=== PATIENT | male | born 1980 ===

== ENCOUNTER 2017-04-17 09:43 | Day surgery (SDC) | payer OTHER ==
[2017-04-15 14:38] VITALS: BMI 34.3
[2017-04-17] MEDS ORDERED: Lidocaine 2% Inj (20ml) ONE (11:23)
[2017-04-17] MEDS ORDERED: Iodixanol 320 MG/ML 200 ML BOTTLE IV ONE (11:24)
[2017-04-17] MEDS ORDERED: Eptifibatide 20 mg/10mL Inj IVP ONE (11:24)
[2017-04-17] MEDS ORDERED: Iohexol 350mgl/ml 50 ML ONE (11:24)
[2017-04-17] MEDS ORDERED: Nitroglycerin 50mg in D5W 50 MG/250 ML BOTTLE IV ONE (11:24)
[2017-04-17] MEDS ORDERED: Iodixanol 320 MG/ML 100 ML BOTTLE IV ONE (11:25)
[2017-04-17] MEDS ORDERED: Phenylephrine 10 mg/ml Inj ONE (11:25)
[2017-04-17] MEDS ORDERED: Midazolam 2 MG/2 ML VIAL ONE (11:40)
[2017-04-17] MEDS ORDERED: Sodium Chloride 0.9% 1,000 ML IV SCH (12:45)
[2017-04-17] MEDS ORDERED: Piperacillin/Tazobact 3.375 gm 100 ML IVPB SCH (13:00)
--- NOTE | 2017-04-17 14:38 | CP.CCUPN ---
<PAYAM MOULTON - Last Filed: 04/17/17 14:30> CCU Subjective - Physician Review Subjective (Free Text): 04/17/17 14:30 Patient seen and assessed at bedside. Patient was received from [facility] for a PCI procedure on his LAD, which was performed by Dr. Lorenzo, and will be transferring back to [facility] at 1730 on 04/17. Patient has no complaints at this time. Patient denies fever, chills, headache, dizziness, chest pain, palpitations, shortness of breath, cough, abdominal pain, N/V, diarrhea, low back pain, or any numbness/tingling/weakness of any extremity. CCU Objective - Vital Signs / Intake & Output Intake and Output (Last 8hrs): Intake & Output 04/16/17 04/17/17 04/17/17 22:59 06:59 14:59 Weight 197 lb - Physical Exam Head: Positive for: Atraumatic, Normocephalic Pupils: Positive for: PERRL Extroacular Muscles: Positive for: EOMI Conjunctiva: Positive for: Normal Mouth: Positive for: Moist Mucous Membranes Pharnyx: Positive for: Normal. Negative for: ERYTHEMA, EXUDATE Nose (External): Positive for: Atraumatic Neck: Positive for: Normal Range of Motion, Trachea Midline. Negative for: JVD Respiratory/Chest: Positive for: Clear to Auscultation, Good Air Exchange. Negative for: Respiratory Distress, Accessory Muscle Use, Rhonchi, Tachypneic Cardiovascular: Positive for: Regular Rate and Rhythm, Normal S1, S2, Peripheal Pulses Present. Negative for: Murmurs, Tachycardic Abdomen: Positive for: Normal Bowel Sounds. Negative for: Tenderness, Distention, Peritoneal Signs Upper Extremity: Positive for: Normal Inspection, NORMAL PULSES, Capillary Refill < 2s, Other (L antecubital procedure insertion site without erythema, edema or drainage). Negative for: Cyanosis, Edema Lower Extremity: Positive for: Normal Inspection, NORMAL PULSES, Capillary Refill < 2 s. Negative for: Edema, CALF TENDERNESS Neurological: Positive for: GCS=15, CN II-XII Intact, Speech Normal, Motor Func Grossly Intact, Normal Sensory Function Skin: Positive for: Warm, Dry, Normal Color. Negative for: Rashes Psychiatric: Positive for: Alert, Oriented x 3, Normal Insight, Normal Concentration - Medications Active Medications: Active Medications Generic Name Dose Route Start Last Admin Trade Name Puja PRN Reason Stop Dose Admin Aspirin 81 mg 04/18/17 10:00 Ecotrin PO DAILY [facility] Atorvastatin Calcium 40 mg 04/17/17 17:00 Lipitor PO DIN [facility] Carvedilol 3.125 mg 04/17/17 18:00 Coreg PO BID [facility] Clopidogrel Bisulfate 75 mg 04/18/17 10:00 Plavix PO DAILY [facility] Famotidine 40 mg 04/17/17 22:00 Pepcid PO HS JAZMYNE Sodium Chloride 1,000 mls @ 100 mls/hr 04/17/17 12:45 Sodium Chloride 0.9% IV 04/17/17 18:00 .Q10H JAZMYNE Piperacillin Sod/Tazobactam Sod 100 mls @ 200 mls/hr 04/17/17 13:00 Zosyn 3.375 In Ns 100ml IVPB 04/17/17 21:29 Q8H JAZMYNE Protocol Insulin Human Regular 0 units 04/17/17 16:30 Humulin R Low SC ACHS [facility] Protocol Losartan Potassium 25 mg 04/18/17 10:00 Cozaar PO DAILY JAZMYNE - Patient Studies EKG/Cardiology Studies: Cardiology / EKG Studies 04/17/17 12:42 ELECTROCARDIOGRAM Urgent Comment: 12 lead EKG upon arrival in unit Reason For Exam: post ptca 04/18/17 12:45 ELECTROCARDIOGRAM DAILY Comment: Reason For Exam: chest pain Review of Systems - Review of Systems Review of Systems: Please refer to HPI Critical Care Progress Note - Nutrition Nutrition: Nutrition Category Date Time Status Heart Healthy Diet [DIET] Diets 04/17/17 Lunch Ordered Assessment/Plan - Assessment and Plan (Free Text) Assessment: 37 year old male who was received from [facility] for PCI on his LAD and will be monitored in [facility] ICU until his transfer back to [facility] at 1730 on 04/17 Plan: Cardio: -Will continue to monitor vital signs and clinical status -Continue current medication regiment as needed -Heart healthy moderate carbohydrate consistent diet Disposition: Patient will transfer back to [facility] at 1730 on 04/17 Patient seen and case discussed with attending, Dr. White. - Date & Time Date: 04/17/17 Time: 14:42 <Rohith White - Last Filed: 04/17/17 15:12> CCU Objective - Vital Signs / Intake & Output Vital Signs (Last 4 hours): Vital Signs Pulse Resp BP Pulse Ox 04/17/17 15:03 166/110 H 04/17/17 15:02 166/110 H 04/17/17 14:27 75 18 150/97 H 98 04/17/17 14:12 75 18 150/97 H 98 04/17/17 13:57 153/84 H 04/17/17 13:42 80 18 153/84 H 98 04/17/17 13:27 78 18 154/104 H 98 04/17/17 13:12 78 18 150/70 98 04/17/17 12:57 169/94 H 04/17/17 12:51 78 18 165/89 H 99 Intake and Output (Last 8hrs): Intake & Output 04/17/17 04/17/17 04/17/17 06:59 14:59 22:59 Weight 197 lb - Medications Active Medications: Active Medications Generic Name Dose Route Start Last Admin Trade Name Freq PRN Reason Stop Dose Admin Aspirin 81 mg 04/18/17 10:00 Ecotrin PO DAILY [facility] Atorvastatin Calcium 40 mg 04/17/17 17:00 Lipitor PO DIN [facility] Carvedilol 3.125 mg 04/17/17 18:00 Coreg PO BID JAZMYNE Clopidogrel Bisulfate 75 mg 04/18/17 10:00 Plavix PO DAILY [facility] Famotidine 40 mg 04/17/17 22:00 Pepcid PO HS JAZMYNE Sodium Chloride 1,000 mls @ 100 mls/hr 04/17/17 12:45 Sodium Chloride 0.9% IV 04/17/17 18:00 .Q10H JAZMYNE Piperacillin Sod/Tazobactam Sod 100 mls @ 200 mls/hr 04/17/17 13:00 04/17/17 14:54 Zosyn 3.375 In Ns 100ml IVPB 04/17/17 21:29 200 mls/hr Q8H JAZMYNE Administration Protocol Insulin Human Regular 0 units 04/17/17 16:30 Humulin R Low SC ACHS JAZMYNE Protocol Losartan Potassium 25 mg 04/18/17 10:00 Cozaar PO DAILY JAZMYNE - Patient Studies EKG/Cardiology Studies: Cardiology / EKG Studies 04/17/17 12:42 ELECTROCARDIOGRAM Urgent Comment: 12 lead EKG upon arrival in unit Reason For Exam: post ptca 04/18/17 12:45 ELECTROCARDIOGRAM DAILY Comment: Reason For Exam: chest pain Critical Care Progress Note - Nutrition Nutrition: Nutrition Category Date Time Status Heart Healthy Diet [DIET] Diets 04/17/17 Lunch Ordered Attending/Attestation - Attestation I have personally seen and examined this patient.: Yes I have fully participated in the care of the patient.: Yes I have reviewed all pertinent clinical information: Yes Notes (Text): 04/17/17 15:10 37 yo male s/p PCI, awaiting transfer back to [facility]. Hemodynamically and respiratory colon stable. No chest pain. Cardiology service to follow up.
--- NOTE | 2017-04-17 14:41 | CARD ---
APPROVED REPORT Procedure(s) performed: PTCA with Stenting of Mid LAD with REGGIE HISTORY The patient is a 37 year-old male with a history of : most recent EF: 40%. (EF Method: LVG), diabetes mellitus with diet treatment , previous diagnostic cath, tobacco history() : The patient is a current smoker , hypertension , Admitted in [facility] with ACS/ NSTEMI positive troponin 4.9 umnderwent Cath at [facility] by Dr. Adele Parnell and tx to broken arrow for PTCA of Mid LAD. INDICATION The indication(s) include : non-STEMI . CASE TECHNIQUE The patient was brought urgently to the Cardiac Catheterization Laboratory in a fasting state and was prepped and draped in a sterile manner. The left wrist was infiltrated with 2% Lidocaine subcutaneous anesthesia. A 6 Fr x 11 cm Yudy sheath was inserted into the left radial artery without difficulty. Coronary angiography was performed using coronary diagnostic catheters. The left coronary system was accessed and visualized with a 6 Fr XB 3 catheter. Closure device was deployed with a Fr TR Band (Large) without any complications. The patient tolerated the procedure well and there were no complications associated with the procedure. Vessel Analysis The patient's coronary anatomy is right dominant. The left main coronary artery is a large size vessel with diffuse calcification noted throughout this vessel and without significant stenosis. The left main bifurcates to the left anterior descending and circumflex. The left anterior descending artery is a medium size vessel with diffuse calcification noted throughout this vessel and with significant stenosis. There is a 99% stenosis in the mid segment. PCI Technique Lesion Percutaneous coronary intervention was performed on the mid left anterior descending artery segment. The lesion stenosis prior to intervention was 95% with DARRELL 2 flow. A 6 Fr XB 3 Guide Catheter was used to engage the ostium. BALLOON DILATION A Balloon catheter 2.0 x 8 mm Mini Trek RX was inserted and inflated up to 8.00atm for 16seconds. STENT DEPLOYMENT A drug-eluting stent 2.75 x 14 mm Resolute REGGIE was inserted and inflated up to 12.00atm for 20seconds. POST STENT DEPLOYMENT BALLOON DILATION A Balloon catheter 3.0 x 8 mm Trek RX NC was inserted and inflated up to 14.00atm for 15seconds. Final angiography reveals 0 % stenosis with DARRELL 3 flow. Conclusion One vessel Critical Mid LAD 99% stenosis. Successful PTCA with REGGIE Recommendations Smoking Cessation Cardiac Rehabilitation ReferralDaily ASA with Plavix for at least one year Aggressive Medical TherapyCardiac Risk Reduction Program Weight Loss Reduction Program CC;Dr. Adele Parnell
[2017-04-17 15:19] LABS: BASO # 0.03 K/mm3 (0.0-2.0); BASO % 0.3 % (0.0-3.0); EOS # 0.1 (0.0-0.7); EOS % 0.7 % (1.5-5.0); GRAN # 4.29 (1.4-6.5); HEMATOCRIT 39.8 % (42.0-52.0); LYMPH # 4.2 (1.2-3.4); LYMPH % 44.2 % (22.0-35.0); MEAN CELL VOLUME 87.9 fl (80.0-105.0); MEAN CORPUSCULAR HEMOGLOBIN 30.5 pg (25.0-35.0); MEAN CORPUSCULAR HGB CONC 34.7 g/dl (31.0-37.0); MEAN PLATELET VOLUME 10.7 fl (7.0-11.0); MONO # 0.9 (0.1-0.6); MONO % 9.8 % (1.0-6.0); RED CELL DISTRIBUTION WIDTH 11.6 % (11.5-14.5); WHITE BLOOD COUNT 9.6 10^3/ul (4.5-11.0)
[2017-04-17 15:29] LABS: BLOOD UREA NITROGEN 11 mg/dL (7-21); CALCIUM 8.3 mg/dL (8.4-10.5); CARBON DIOXIDE 25 mmol/L (21-33); CHLORIDE 102 mmol/L (98-107); GFR AFRICAN-AMERICAN > 60; GLUCOSE,RANDOM 194 mg/dL (70-110); POTASSIUM 3.5 mmol/L (3.6-5.0); SODIUM 136 mmol/L (132-148)
[2017-04-17] MEDS ORDERED: Insulin Reg-LOW-Coverage SC SCH (16:30)
[2017-04-17] MEDS ORDERED: Bacitracin 500 Units/gm Oint Foilpak UD ONE (17:11)
--- NOTE | 2017-04-17 17:49 | CARD ---
APPROVED REPORT EKG Measurement Heart [id number] <Conclusion> Normal sinus rhythm T wave abnormality, consider anterolateral ischemia Prolonged QT Abnormal ECG
[2017-04-17 19:45] VITALS: BP 161/95
--- NOTE | 2017-04-17 20:27 | HP ---
REASON FOR ADMISSION: Possible angioplasty of mid LAD, transferred from [facility]. BRIEF CLINICAL HISTORY: A 37-year-old male active tobacco abuse, admitted with unstable angina at [facility], subsequently ruled in on Non-STEMI, underwent cardiac catheterization yesterday by Dr. Wayne Parnell, found to be mid LAD critical disease, so patient was transferred today for angioplasty. PAST HISTORY: Significant for diabetes, hypertension, currently not on meds. CURRENT MEDICATIONS: None. ALLERGIES: NONE. SOCIAL HISTORY: Smokes a pack a day, cut down to half a pack recently and now from last one week, cut down further before prior to admission. FAMILY HISTORY: Significant for hypertension, diabetes. No family history of coronary artery disease. REVIEW OF SYSTEMS: As per HPI. PHYSICAL EXAMINATION: VITAL SIGNS: Temperature afebrile, heart rate 88, blood pressure 143/109. HEENT: PERRLA, extraocular muscles intact. NECK: Supple. No carotid bruit. No thyromegaly. HEART: S1 and S2 regular. LUNGS: Clear to auscultation. ABDOMEN: Soft. EXTREMITIES: Clubbing and cyanosis negative. LABORATORY DATA: WBC 13.2, hemoglobin 15.3, hematocrit 45.8, platelet count 168. Chemistry shows sodium yesterday was 139, potassium 3.8, chloride 98, carbon dioxide 22, anion gap of 22, BUN 23, creatinine 12. BNP: 10,000 units of troponin. Total troponin 4.9. Triglycerides 151, cholesterol 258, LDL 207, HDL 47. TSH 0.32. IMPRESSION: Non-ST segment myocardial infarction, coronary artery disease, active tobacco abuse, diabetes, hyperlipidemia, status post cardiac catheterization by Dr. Wayne Parnell. Found to be critical disease in mid left anterior descending artery, patient here for percutaneous transluminal coronary angioplasty of left anterior descending artery. Risks, benefits, alternatives discussed with the patient. The patient agreed. We will proceed for percutaneous transluminal coronary angioplasty. We will review the medications profile and if Plavix was not given today, we will give the Plavix and aspirin. We will follow with you. Discussed in length, patient agreed, we will proceed for percutaneous transluminal coronary angioplasty. Lucy Lorenzo MD [facility] # [id number]
[2017-04-17 21:13] VITALS: PULSE 86; RESP 21; TEMP 98.5; O2SAT 100
--- NOTE | 2017-04-18 04:44 | DS ---
BRIEF CLINICAL HISTORY: This is a 37-year-old male with past medical history significant for coronary artery disease, status post nonischemic, admitted to [facility] yesterday, cardiac catheterization was done by Dr. Wayne Parnell and transferred today for PTCA of LAD. The patient successfully underwent PTCA with drug-eluting stent in LAD 2.75 mm stent REGGIE resolute, 14 mm in length was deployed. Rest of the hospital course has been uneventful. The patient's cardiac catheterization and angioplasty were done, left radial approach; the patient is going back to the [facility]. MEDICATIONS ON DISCHARGE: Include Coreg 3.125 mg twice, losartan 25 mg daily, aspirin 81 mg daily, atorvastatin 40 mg daily, Pepcid 40 mg p.o. at bedtime, carvedilol 75 mg daily. PRINCIPAL PROCEDURES DONE ON THIS ADMISSION: Include angioplasty of LAD with drug-eluting stent. TYPE OF DISCHARGE: Discharged back to [facility]. Lucy Lorenzo MD
== END 2017-04-18 06:17 | disposition short-term general hospital (02) ==
LOC: CATH 09:43 → CCU 12:42 → CATH 04-18 06:17
PROVIDERS: ATTEND Internal Medicine Cardiovascular Disease
DX: I21.4 Non-ST elevation (NSTEMI) myocardial infarction (principal); I25.110 Atherosclerotic heart disease of native coronary artery with unstable angina pectoris; I10 Essential (primary) hypertension; E11.9 Type 2 diabetes mellitus without complications; F17.200 Nicotine dependence, unspecified, uncomplicated; E78.5 Hyperlipidemia, unspecified
CPT/HCPCS: 80048; 82948; 85025; 85175; 93005; 99152; C1725 ×2; C1769 ×2; C1874; C1887; C2629; C9600; J1327; J1644 ×2; J2250; J2543; J3010; J7040; Q9967